=== PATIENT | female | born 1985 | race Caucasian/White ===

== ENCOUNTER 2016-04-26 11:31 | Emergency (ER) | payer OTHER ==
[2016-04-26 11:41] VITALS: BP 108/74
--- NOTE | 2016-04-26 11:53 | UC ---
Cardiac HPI - HPI Summary HPI Summary: C/o a burning, aching sensation in the upper chest for 6 days. The pain is worse when she lays down. Here with Mom Gypsy. She states that she gets this a lot. 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 over left chest wall. this is different bc it is not tender to palpation. usually it is stabbing. now it is burning aching. constant. not worse. not SOB. no tachycrardia or palpitations that she knows of. not sick, not coughing. GM had blood clot s/p heart surgery - uncertain genetic testing. denies specific recent swelling in legs although she has constant swelling and pain in her legs. 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 states it is resolved - last checked a few months ago. Pain max 2/10, but 3-4/10 when she lies down. she just woke up with it on Thursday. non-smoker. she is on OCPs. She is here with her Mom. denies - History of Current Complaint Chief Complaint: UCChestPain Stated Complaint: CHEST DISCOMFORT Time Seen by Provider: 04/26/16 11:42 - Allergy/Home Medications Allergies/Adverse Reactions: Allergies Allergy/AdvReac Type Severity Reaction Status Date / Time Ciprofloxacin [From Cipro] Allergy Unknown Unknown Verified 04/26/16 11:41 Reaction Details Penicillins Allergy Unknown Unknown Verified 04/26/16 11:41 Reaction Details Clindamycin Allergy Hives Verified 04/26/16 11:41 Sulfamethoxazole Allergy Hives Verified 04/26/16 11:41 w/Trimethoprim [From Bactrim] PMH/Surg Hx/FS Hx/Imm Hx Previously Healthy: Yes - Surgical History Surgical History: Yes Surgery Procedure, Year, and Place: ovarian- pre-cancerous cells. stent placed in kidneys - Family History Known Family History: Positive: Cardiac Disease, Hypertension, Blood Disorder - GM with blood clot post-op - Social History Alcohol Use: Rare Substance Use Type: None Smoking Status (MU): Former Smoker Type: Cigarettes Amount Used/How Often: 1/2 pack daily When Did the Patient Quit Smoking/Using Tobacco: 2013 - Immunization History Most Recent Influenza Vaccination: not this season Review of Systems Constitutional: Negative Skin: Negative Eyes: Negative ENT: Negative Respiratory: Negative Cardiovascular: Chest Pain Gastrointestinal: Negative Genitourinary: Negative Motor: Negative Neurovascular: Negative Musculoskeletal: Negative Neurological: Negative Psychological: Negative All Other Systems Reviewed And Are Negative: Yes Physical Exam Triage Information Reviewed: Yes Appearance: Well-Appearing, No Pain Distress, Well-Nourished - vague historian with brief answers Vital Signs: Initial Vital Signs Temp 98.0 F 04/26/16 11:38 Pulse 81 04/26/16 11:38 Resp 16 04/26/16 11:38 BP 108/74 04/26/16 11:38 Pulse Ox 99 04/26/16 11:38 Eye Exam: Normal ENT Exam: Normal ENT: Positive: Normal ENT inspection, Pharynx normal, TMs normal. Negative: Nasal congestion Dental Exam: Normal Neck exam: Normal Neck: Positive: Supple, Nontender, No Lymphadenopathy Respiratory: Positive: Chest non-tender - but she does admit to some "mild pressure" when I push over her left upper chest wall., Lungs clear, Normal breath sounds, No respiratory distress, No accessory muscle use. Negative: Crackles, Rhonchi, Stridor, Wheezing Cardiovascular Exam: Normal Cardiovascular: Positive: RRR, No Murmur, Pulses Normal, Brisk Capillary Refill Abdominal Exam: Normal Abdomen Description: Positive: Nontender, Soft Musculoskeletal Exam: Normal Neurological Exam: Normal Psychological Exam: Normal Skin Exam: Normal Diagnostics - EKG Cardiac Rate: NL - nml axis, no AV/IV changes, no ST/T changes, no S1, Q 3, inverted T3 pattern. no previous to compare to Cardiac Rhythm: Sinus: Normal Ectopy: None ST Segment: Normal Re-Evaluation - Re-Evaluation First Eval Re-Evaluation Time: 12:30 Change: Unchanged - Assessment/Plan Course Of Treatment: EKG - nml. I recommend ER eval for CT with contrast to r/o DVT (RFs include + fhx blood clot and on ocp). They decline ER/CT AMA. They are aware of risk of blood clot/PE and dangers/risks of and permanent disability. They continue to refuse. I have therefore ordered a CXR at this time that they agree to. CXR is nefative for acute disease. Mom has left by now. Emmanuel has not changed her mind about going to the ER. I have advised her to go to ER with any worsening sx, SOB, diaphoresis, etc. - Differential Diagnoses - Chest Pain Differential Diagnosis/HQI/PQRI: Chest Wall, Pulmonary Embolism - Clinical Impression Provider Diagnoses: chest pain Discharge - Discharge Plan Condition: Good Disposition: AGAINST MEDICAL ADVICE Patient Education Materials: Thoracic Pain (ED) Referrals: Maria Alejandra Mirza MD [Primary Care Provider] - 2 Days Additional Instructions: Make sure to follow up with your PCP in 2 days. Go to the ER with any worsening pain or other symptoms
--- NOTE | 2016-04-26 13:04 | RAD ---
HISTORY: Left chest pain COMPARISONS: June 15, 2013 VIEWS: 2: Frontal dual-energy and lateral views of the chest. FINDINGS: CARDIOMEDIASTINAL SILHOUETTE: The cardiomediastinal silhouette is normal. VIKRAM: The vikram are normal. PLEURA: The costophrenic angles are sharp. No pleural abnormalities are noted. LUNG PARENCHYMA: The lungs are clear. ABDOMEN: The upper abdomen is clear. There is no subphrenic gas. BONES AND SOFT TISSUES: No bone or soft tissue abnormalities are noted. OTHER: None. IMPRESSION: NO ACTIVE CARDIOPULMONARY DISEASE.
== END 2016-04-26 13:29 | disposition left against medical advice (07) ==
LOC: UCCORT 11:31
DX: R07.9 Chest pain, unspecified (principal); Z53.29 Procedure and treatment not carried out because of patient's decision for other reasons; Z82.49 Family history of ischemic heart disease and other diseases of the circulatory system; Z87.891 Personal history of nicotine dependence; Z88.3 Allergy status to other anti-infective agents; Z88.0 Allergy status to penicillin
CPT/HCPCS: 71020; 93005; 99212; G0463

== ENCOUNTER 2018-04-14 14:45 | Emergency (ER) | payer OTHER ==
[2018-04-14 16:39] VITALS: BP 120/78
--- NOTE | 2018-04-14 16:59 | UC ---
Lower Extremity/Ankle HPI - HPI Summary HPI Summary: 33-year-old female presents with complaints of right foot pain. States approximately 6 weeks ago she accidentally dropped a piece pain Seiter on her foot. States pain was improving however to 3 days ago her great tc stepped on her foot and reaggravated the injury. Reports some bruising and mild swelling to the dorsal aspect of her right foot. She has been able to ambulate and bear weight without difficulty. Has not taken any [id number] analgesics. Denies any numbness or tingling. - History of Current Complaint Chief Complaint: UCLowerExtremity Stated Complaint: RIGHT FOOT INJURY Time Seen by Provider: 04/14/18 16:43 Hx Obtained From: Patient Hx Last Menstrual Period: 04/14/18 Pain Intensity: 3 - Allergies/Home Medications Allergies/Adverse Reactions: Allergies Allergy/AdvReac Type Severity Reaction Status Date / Time ciprofloxacin [From Cipro] Allergy Unknown Verified 04/14/18 16:36 Reaction Details clindamycin Allergy Hives Verified 04/14/18 16:36 Penicillins Allergy Unknown Verified 04/14/18 16:36 Reaction Details sulfamethoxazole Allergy Hives Verified 04/14/18 16:36 [From Bactrim] trimethoprim [From Bactrim] Allergy Hives Verified 04/14/18 16:36 Home Medications: Home Medications Oral Control 1 tab PO DAILY 04/14/18 [History Confirmed 04/14/18] Sertraline* [Zoloft*] 50 mg PO BEDTIME 04/14/18 [History Confirmed 04/14/18] PMH/Surg Hx/FS Hx/Imm Hx Previously Healthy: Yes - Denies significant PMH - Surgical History Surgical History: Yes Surgery Procedure, Year, and Place: ovarian- pre-cancerous cells. stent placed in kidneys-REMOVED - Family History Known Family History: Positive: Cardiac Disease, Hypertension, Blood Disorder - GM with blood clot post-op - Social History Occupation: Employed Full-time Lives: With Family Alcohol Use: None Substance Use Type: None Smoking Status (MU): Former Smoker Type: Cigarettes Amount Used/How Often: 1/2 pack daily When Did the Patient Quit Smoking/Using Tobacco: 2013 - Immunization History Most Recent Influenza Vaccination: not this season Review of Systems All Other Systems Reviewed And Are Negative: Yes Constitutional: Negative: Fever, Chills Skin: Positive: Bruising Motor: Negative: Weakness Neurovascular: Negative: Decreased Sensation Musculoskeletal: Positive: Other: - See HPI. Negative: Decreased ROM Is Patient Immunocompromised?: No Physical Exam - Summary Physical Exam Summary: GENERAL APPEARANCE: Well developed, well nourished, alert and cooperative, and appears to be in no acute distress. CARDIAC: Normal S1 and S2. No S3, S4 or murmurs. Rhythm is regular. There is no peripheral edema, cyanosis or pallor. Extremities are warm and well perfused. Capillary refill is less than 2 seconds. LUNGS: Clear to auscultation and percussion without rales, rhonchi, wheezing or diminished breath sounds. ABDOMEN: Positive bowel sounds. Soft, nondistended, nontender. No guarding or rebound. No masses or hepatosplenomegally. MUSKULOSKELETAL: Mild tenderness to dorsal aspect of medial right foot without crepitus or gross deformity. ROM intact to right ankle. No joint erythema or tenderness. Normal muscular development. Normal gait. EXTREMITIES: No significant deformity or joint abnormality. Peripheral pulses intact. NEUROLOGICAL: Strength and sensation symmetric and intact throughout. SKIN: Mild ecchymosis to dorsal aspect of medial right foot otherwise normal color, texture and turgor with no lesions or eruptions. Vital Signs: Initial Vital Signs Temp 97.7 F 04/14/18 16:34 Pulse 83 04/14/18 16:34 Resp 16 04/14/18 16:34 BP 120/78 04/14/18 16:34 Pulse Ox 100 04/14/18 16:34 Diagnostics - Radiology No standard instances Radiology Interpretation Completed By: Radiologist Summary of Radiographic Findings: Patient Name: FINA BROOKS . Ordering Physician: Deven Schuster NP Acct.#: [id number]. : 1985 Age: 33 Sex: F Location: [facility]. Exam Date: 163 ADM Status: REG ER. Order Information: FOOT RIGHT 3+ VWS. Accession Number: [id number]. CPT: 02720. HISTORY: pain, right fifth metatarsal pain, subacute trauma. COMPARISONS: None. VIEWS: 3 , Frontal, lateral, and oblique views of the right foot. FINDINGS: BONE DENSITY: Normal. BONES: There is no displaced fracture. JOINTS: There is no arthropathy. ALIGNMENT: There is no dislocation. SOFT TISSUES: Unremarkable. OTHER FINDINGS : None. IMPRESSION: NO ACUTE OSSEOUS INJURY. IF SYMPTOMS PERSIST, RECOMMEND REPEAT IMAGING. Lower Extremity Course/Dx - Course Course Of Treatment: 33-year-old female presents with complaints of right foot pain. States approximately 6 weeks ago she accidentally dropped a piece pain Seiter on her foot. States pain was improving however to 3 days ago her great tc stepped on her foot and reaggravated the injury. Reports some bruising and mild swelling to the dorsal aspect of her right foot. She has been able to ambulate and bear weight without difficulty. Has not taken any over-the- counter analgesics. Denies any numbness or tingling. Afebrile. Vital signs stable. Exam unremarkable except for some mild bruising to the dorsal aspect of her medial right foot. X-ray was negative for fracture or dislocation. Recommending conservative treatment of rest and [id number] analgesics. She is to follow-up with her primary care provider in 7 days if symptoms persist. - Differential Dx/Diagnosis Differential Diagnosis/HQI/PQRI: Contusion, Dislocation, Fracture (Closed), Sprain, Strain Provider Diagnosis: Contusion of right foot Discharge - Sign-Out/Discharge Documenting (check all that apply): Patient Departure All imaging exams completed and their final reports reviewed: Yes - Discharge Plan Condition: Stable Disposition: HOME Patient Education Materials: Foot Contusion (ED) Referrals: Maria Alejandra Mirza MD [Primary Care Provider] - 7 Days (If symptoms persist.) Additional Instructions: Your x-ray of the foot performed in the clinic today was normal. Rest the foot as much as possible. You may continue to ambulate and bear weight but should avoid strenuous activities. Take acetaminophen (Tylenol) or ibuprofen (Advil, Motrin) according to directions as needed for pain. Follow up with your primary care provider in 1 week if symptoms persist. - Billing Disposition and Condition Condition: STABLE Disposition: Home - Attestation Statements Provider Attestation: I was available for consult. This patient was seen by the EVELYN. The patient was not presented to, seen by, or examined by me. -Marcus
== END 2018-04-14 17:11 | disposition home or self-care (01) ==
LOC: UCCORT 14:45
DX: S90.31XA Contusion of right foot, initial encounter (principal); W20.8XXA Other cause of strike by thrown, projected or falling object, initial encounter; Y92.9 Unspecified place or not applicable; Z88.1 Allergy status to other antibiotic agents; Z88.0 Allergy status to penicillin; Z87.891 Personal history of nicotine dependence
CPT/HCPCS: 99211; G0463

== ENCOUNTER 2024-04-25 10:01 | Inpatient (IN) ==
[2024-04-25] MEDS ORDERED: Buffered Lidocaine 1% SYRIN 1 ml INTRADERM ONE (12:34)
[2024-04-25] MEDS ORDERED: Lidocaine 1% VIAL 10 MG/ML 30 ML VIAL INJ PRN (12:34)
[2024-04-25] MEDS ORDERED: Nalbuphine 10 MG/ML 1 ML VIAL IV PRN (12:34)
[2024-04-25] MEDS: miSOPROStol 100 mcg TAB VAGINAL ONE ×2 (12:58→17:22)
[2024-04-25] MEDS ORDERED: Lactated Ringers 1000 ml BAG 1,000 ML IV SCH (13:00)
[2024-04-25 14:13] LABS: Urine Benzodiazepine Screen None Detected (None Detect); Urine Cannabinoids Screen None Detected (None Detect); Urine Opiates Screen None Detected (None Detect)
[2024-04-25] MEDS: Lactated Ringers 1000 ml BAG 1,000 ML IV ONE (21:13)
[2024-04-25 21:23] LABS: ABS Eosinophils 0.1 10^3/uL (0.0-0.5); ABS Lymphocytes 2.4 10^3/uL (1.0-4.8); ABS Monocytes 0.8 10^3/uL (0.0-0.9); ABS Neutrophils 7.9 10^3/uL (1.5-7.6); ABS Nucleated RBC 0.02 10^3/ul; Anisocytosis 1+; Eosinophil % 1.1 %; Hemoglobin 10.5 g/dL (11.5-14.3); Hypochromasia 1+; Lymphocyte % 21.6 %; Mean Corpuscular Hemoglobin 23.6 pg (27-33); Mean Corpuscular Hgb Conc 31.8 g/dL (31-36); Mean Corpuscular Volume 74.3 fL (80-97); Mean Platelet Volume 8.2 fL (7.5-11.2); Microcytosis 2+; Nucleated Red Blood Cells % 0.1 %/100WBC (0.0-0.8); Platelet Count 348 10^3/uL (150-450); Red Blood Count 4.44 10^6/uL (3.63-4.92); Red Cell Distribution Width 16.3 % (12-17); White Blood Count 11.3 10^3/uL (3.8-11.8)
[2024-04-25] MEDS: Oxytocin in LR 20,000 MILLI.UNIT/1,000 ML BAG IV SCH (22:22)
[2024-04-26] MEDS ORDERED: Polyethylene Glycol 3350 17 GM PACKET PO PRN (08:48)
[2024-04-26] MEDS ORDERED: Glycerin ADULT 2.4 gm SUPP PR PRN (08:48)
[2024-04-26] MEDS ORDERED: Witch Hazel PAD JAR TOPICAL PRN (08:48)
[2024-04-26] MEDS ORDERED: Dibucaine 1% OINT 28.35 GM TUBE PR PRN (08:48)
[2024-04-26] MEDS ORDERED: Oxytocin in LR 20,000 MILLI.UNIT/1,000 ML BAG IV SCH (08:50)
[2024-04-26 10:47] LABS: ABS Lymphocytes 1.7 10^3/uL (1.0-4.8); ABS Monocytes 1.2 10^3/uL (0.0-0.9); ABS Neutrophils 12.9 10^3/uL (1.5-7.6); Eosinophil % 0.3 %; Hematocrit 30.4 % (35-45); Hemoglobin 9.5 g/dL (11.5-14.3); Lymphocyte % 10.8 %; Mean Corpuscular Hemoglobin 23.1 pg (27-33); Mean Corpuscular Hgb Conc 31.1 g/dL (31-36); Mean Corpuscular Volume 74.2 fL (80-97); Mean Platelet Volume 8.4 fL (7.5-11.2); Platelet Count 307 10^3/uL (150-450); Red Cell Distribution Width 16.7 % (12-17); White Blood Count 15.9 10^3/uL (3.8-11.8)
[2024-04-27 08:31] VITALS: BP 104/64
== END 2024-04-27 12:21 | disposition home or self-care (01) | DRG 560 ==
LOC: MCHOBOUT 10:01 → MCHOB 11:39